=== PATIENT | male | born 2000 | race African-American/Black ===

== ENCOUNTER 2018-03-30 03:47 | Emergency (ER) | payer OTHER ==
[~2018-03-30] VITALS: Ht 200.7 cm; Wt 113.4 kg
[~2018-03-30 03:47] MED LIST: NOHOMEMEDICATIONS; NORCO 5-325 TA1 EACH PO
[2018-03-30 05:06] LABS: URINE BILIRUBIN NEGATIVE (Negative); URINE BLOOD NEGATIVE (Negative); URINE CLARITY SL CLOUDY; URINE COLOR YELLOW; URINE GLUCOSE-RANDOM* NEGATIVE (Negative); URINE KETONES NEGATIVE (Negative); URINE LEUKOCYTES-REFLEX NEGATIVE (Negative); URINE NITRITE-REFLEX NEGATIVE (Negative); URINE PROTEIN (DIPSTICK) NEGATIVE (Negative)
[2018-03-30] MEDS ORDERED: NAPROSYN500 MG PO (05:12)
[2018-03-30] MEDS ORDERED: CIPROFLOXACIN500 M1 PO (05:12)
[2018-03-30] MEDS ORDERED: ULTRAM 50MG TAB50 MG PO (05:12)
[2018-03-30 05:20] VITALS: BP 145/72
== END 2018-03-30 05:23 | disposition home or self-care (01) ==
LOC: ER 03:47
PROVIDERS: Emergency Medicine
DX: N45.1 Epididymitis (principal)